=== PATIENT | male | born 1965 | race Caucasian/White ===

== ENCOUNTER 2017-02-22 15:09 | Emergency (ER) | payer OTHER ==
[2017-02-22 15:59] LABS: BASO % 0.7 % (0.2-1.2); EOS # 0.1 10_X3_uL (0.0-0.5); EOS % 2.4 % (0.8-7.0); GRAN # 2.7 10_X3_uL (1.8-5.4); GRAN % 66.1 % (34.0-67.9); HEMATOCRIT 39.2 % (40-51); HEMOGLOBIN 13.5 g/dL (13.7-17.5); LYMPH % 25.2 % (21.8-53.1); MEAN CORPUSCULAR HEMOGLOBIN 28.8 pg (27.0-33.0); MEAN CORPUSCULAR HGB CONC 34.4 g/dL (32.0-36.0); MEAN CORPUSCULAR VOLUME 83.8 fL (79-92); MEAN PLATELET VOLUME 11.5 fl (7.5-11.5); MONO # 0.2 10_X3_uL (0.3-0.8); MONO % 5.6 % (5.3-12.2); PLATELET COUNT 202 x10_3/uL (163-337); RED BLOOD COUNT 4.68 x10_6/uL (4.6-6.1); RED CELL DISTRIBUTION WIDTH 13.7 % (11.6-14.4); WHITE BLOOD COUNT 4.1 x10_3/uL (4.2-9.1)
[2017-02-22 16:11] LABS: BLOOD UREA NITROGEN 13 mg/dL (7-18); CALCIUM 9.4 mg/dL (8.7-10.7); CARBON DIOXIDE 32 mmol/L (21-32); CREATININE 0.9 mg/dL (0.6-1.3); GLUCOSE,RANDOM 101 mg/dL (70-99); POTASSIUM 3.1 mmol/L (3.5-5.1); SODIUM 145 mmol/L (136-145)
== END 2017-02-22 17:36 | disposition home or self-care (01) ==
LOC: ER 15:09
PROVIDERS: Emergency Medicine
DX: I10 Essential (primary) hypertension (principal); J40 Bronchitis, not specified as acute or chronic; E87.6 Hypokalemia; Z91.14 Patient's other noncompliance with medication regimen; F41.9 Anxiety disorder, unspecified; J34.89 Other specified disorders of nose and nasal sinuses; Z79.899 Other long term (current) drug therapy; Z79.82 Long term (current) use of aspirin
CPT/HCPCS: 71020; 80048; 85025; 87400; 93005; 99283-25